=== PATIENT | male | born 1985 | race African-American/Black ===

== ENCOUNTER 2020-11-24 19:17 | Emergency (ER) | payer OTHER ==
[~2020-11-24] VITALS: Ht 180.3 cm; Wt 106.1 kg
[2020-11-24 20:24] LABS: POTASSIUM 3.7 mmol/L (3.6-5.2)
[2020-11-24 20:53] LABS: PLATELET COUNT 217 K/uL (142-355)
[2020-11-25 01:45] VITALS: BP 146/86; TEMP 98.7
== END 2020-11-25 01:45 | disposition home or self-care (01) ==
LOC: ED 19:17
PROVIDERS: Family Medicine
DX: K85.90 Acute pancreatitis without necrosis or infection, unspecified (principal)
CPT/HCPCS: 80053; 80320; 81000; 82150; 82272; 83690; 85027; 96360; 96375; 99284; J2175; J2405; J3490; Q9963

== ENCOUNTER 2021-04-18 00:19 | Emergency (ER) | payer OTHER | END 2021-04-18 01:18 | disposition home or self-care (01) | LOC: ED 00:19 | DX: Z53.21 Procedure and treatment not carried out due to patient leaving prior to being seen by health care provider (principal) | CPT/HCPCS: 99281 ==